=== PATIENT | male | born 1955 | race Caucasian/White ===

== ENCOUNTER → 2016-07-16 | Outpatient (CLI) | payer OTHER ==
[~2016-07-16] MED LIST: CO Q50CA; FOSI40TA PO; LEVO175T2 PO; MODU550 PO; MULT-135 PO; NOVOLOGSS; PRAS1CAP3 PO; ROSU10 PO; VITA-83 PO; VITA400C5
[2016-07-16 07:19] LABS: HEMATOCRIT 37.2 % (39.0-51.0); MEAN CELL VOLUME 90.3 FL (80.0-100.0); MEAN CORPUSCULAR HEMOGLOBIN 30.1 PG (27.0-34.0); MEAN CORPUSCULAR HGB CONC 33.4 % (32.0-36.0); PLATELET COUNT 229 TH/MM3 (150-450); RED BLOOD COUNT 4.12 MIL/MM3 (4.50-5.90); RED CELL DISTRIBUTION WIDTH 13.5 % (11.6-17.2); REVIEW FLAG FINAL; WHITE BLOOD COUNT 5.4 TH/MM3 (4.0-11.0)
[2016-07-16 07:36] LABS: MICRO ALBUMIN RANDOM URINE RAW 5.9 MG/L (0.0-30.0)
[2016-07-16 07:42] LABS: HDL CHOLESTEROL 48.7 MG/DL (40.0-60.0)
[2016-07-16 07:48] LABS: ALKALINE PHOSPHATASE 26 U/L (45-117); ALT (GPT) 27 U/L (12-78); ANION GAP 6 MEQ/L (5-15); AST (GOT) 16 U/L (15-37); BICARBONATE 30.1 MEQ/L (21.0-32.0); BLOOD UREA NITROGEN 19 MG/DL (7-18); CHLORIDE 104 MEQ/L (98-107); FREE T4 0.99 NG/DL (0.76-1.46); GLOMERULAR FILTRATION RATE 68 ML/MIN (>89); GLUCOSE,FASTING 142 MG/DL (74-99); POTASSIUM 4.4 MEQ/L (3.5-5.1); SODIUM (NA) 140 MEQ/L (136-145); TOTAL BILIRUBIN ADULT 0.4 MG/DL (0.2-1.0)
[2016-07-16 13:56] LABS: HEMOGLOBIN A1a 1.2 %; HEMOGLOBIN A1b 0.9 %; HEMOGLOBIN Ao 80.9 %; HEMOGLOBIN F 1.3 %; HEMOGLOBIN LA1C 2.3 %; HEMOGLOBIN P3 4.4 %
== END ==
LOC: CLAB 06:44
PROVIDERS: ATTEND Internal Medicine Endocrinology, Diabetes & Metabolism
DX: E10.65 Type 1 diabetes mellitus with hyperglycemia (principal); E89.0 Postprocedural hypothyroidism; E11.9 Type 2 diabetes mellitus without complications; E03.9 Hypothyroidism, unspecified; E78.5 Hyperlipidemia, unspecified; I10 Essential (primary) hypertension
CPT/HCPCS: 36415; 80053; 80061; 82043; 83036; 84439; 84443; 85027

== ENCOUNTER → 2016-11-19 | Outpatient (CLI) | payer OTHER ==
[2016-11-19 08:43] LABS: HEMATOCRIT 37.3 % (39.0-51.0); MEAN CELL VOLUME 89.8 FL (80.0-100.0); MEAN CORPUSCULAR HGB CONC 35.7 % (32.0-36.0); PLATELET COUNT 253 TH/MM3 (150-450); RED BLOOD COUNT 4.16 MIL/MM3 (4.50-5.90); RED CELL DISTRIBUTION WIDTH 12.7 % (11.6-17.2); REVIEW FLAG FINAL
[2016-11-19 09:10] LABS: ANION GAP 6 MEQ/L (5-15); AST (GOT) 13 U/L (15-37); BICARBONATE 28.7 MEQ/L (21.0-32.0); BLOOD UREA NITROGEN 19 MG/DL (7-18); CHLORIDE 104 MEQ/L (98-107); GLOMERULAR FILTRATION RATE 101 ML/MIN (>89); GLUCOSE,FASTING 100 MG/DL (74-99); POTASSIUM 4.1 MEQ/L (3.5-5.1); SODIUM (NA) 139 MEQ/L (136-145)
[2016-11-19 09:22] LABS: ALKALINE PHOSPHATASE 26 U/L (45-117); ALT (GPT) 26 U/L (12-78); FREE T4 0.99 NG/DL (0.76-1.46); HDL CHOLESTEROL 48.7 MG/DL (40.0-60.0); LDL CHOLESTEROL 71 MG/DL (0-99); TOTAL BILIRUBIN ADULT 0.5 MG/DL (0.2-1.0)
[2016-11-19 16:12] LABS: HEMOGLOBIN A1a 1.2 %; HEMOGLOBIN Ao 80.7 %; HEMOGLOBIN F 1.4 %; HEMOGLOBIN LA1C 2.4 %; HEMOGLOBIN P3 4.6 %
== END ==
LOC: OLAB 07:37
PROVIDERS: ATTEND Family Medicine
DX: E10.65 Type 1 diabetes mellitus with hyperglycemia (principal); I10 Essential (primary) hypertension; E78.5 Hyperlipidemia, unspecified; E03.9 Hypothyroidism, unspecified
CPT/HCPCS: 80053; 80061; 83036; 83735; 84402; 84403; 84410; 84439; 84443; 85027

== ENCOUNTER → 2017-02-18 | Outpatient (CLI) | payer OTHER ==
[~2017-02-18] MED LIST changes: +HUMALOG SQ; +INSU100V3 SQ; -MULT-135 PO; +MULTTAB67 PO; -PRAS1CAP3 PO; -VITA-83 PO; +VITA250T3 PO; +[UNRECOGNIZED DRUG - CODE] PO
[2017-02-18 13:03] LABS: AUTOMATED NEUTROPHIL # 3.9 TH/MM3 (1.8-7.7); BASOPHIL # 0.1 TH/MM3 (0-0.2); BASOPHIL % 0.9 % (0.0-2.0); EOSINOPHIL # 0.2 TH/MM3 (0-0.4); EOSINOPHIL % 2.9 % (0.0-4.0); HEMATOCRIT 36.3 % (39.0-51.0); HEMO FLAGS DIFF FINAL; LYMPH % 27.8 % (9.0-44.0); LYMPHOCYTE # 1.9 TH/MM3 (1.0-4.8); MEAN CELL VOLUME 91.7 FL (80.0-100.0); MEAN CORPUSCULAR HEMOGLOBIN 31.5 PG (27.0-34.0); MEAN CORPUSCULAR HGB CONC 34.4 % (32.0-36.0); MONO % 12.2 % (0.0-8.0); NEUT % 56.2 % (16.0-70.0); PLATELET COUNT 260 TH/MM3 (150-450); RED BLOOD COUNT 3.96 MIL/MM3 (4.50-5.90); RED CELL DISTRIBUTION WIDTH 12.9 % (11.6-17.2); WHITE BLOOD COUNT 6.9 TH/MM3 (4.0-11.0)
--- NOTE | 2017-02-21 18:10 | EKG ---
Date Performed: 02/18/2017 Time Performed: 12:20:19 PTAGE: 61 years EKG: Sinus rhythm MODERATE VOLTAGE CRITERIA FOR LVH, CONSIDER NORMAL VARIANT BORDERLINE ECG Compared to prior tracing no significant change PREVIOUS TRACING : 09/18/2015 07.17 DOCTOR: Nii Barlow Interpretating Date/Time 02/21/2017 18:08:08
== END ==
LOC: CPRE 11:52
PROVIDERS: ATTEND Urology
DX: Z01.810 Encounter for preprocedural cardiovascular examination (principal); Z01.812 Encounter for preprocedural laboratory examination; N52.8 Other male erectile dysfunction; N48.6 Induration penis plastica; T83.410A Breakdown (mechanical) of implanted penile prosthesis, initial encounter; R94.31 Abnormal electrocardiogram [ECG] [EKG]
CPT/HCPCS: 36415; 85025; 93005

== ENCOUNTER 2017-02-22 06:07 | Observation (INO) | payer OTHER ==
[~2017-02-22] VITALS: Ht 177.8 cm; Wt 89.4 kg
[~2017-02-22 06:07] MED LIST changes: -INSU100V3 SQ
[2017-02-22] MEDS ORDERED: GENTAMICIN INJ 240 MG in SODIUM CHLORIDE 0.9% INJ 100 ML IV SCH (06:30)
[2017-02-22] MEDS ORDERED: SODIUM CHLORID 0.9% 500 ML IV PRN (06:30)
[2017-02-22] MEDS ORDERED: VANCOMYCIN HCL 1000 MG ON-CALL/NS 250 ML IV SCH ×2 (06:30)
[2017-02-22] MEDS ORDERED: CHLORHEXIDINE GLUCONATE 2 % 1 PACK (2 CLOTHS) TOPICAL PRN (06:30)
[2017-02-22] MEDS ORDERED: INSULIN HUMAN REGULAR 1,000 UNITS/10 ML VIAL SQ PRN (06:30)
[2017-02-22] MEDS ORDERED: LACTATED RINGER'S 1000 ML IV PRN (06:30)
[2017-02-22] MEDS ORDERED: POVIDONE IODINE 5% (ANTISEPSIS KIT) 4 APPLICATIONS EACH NARE PRN (06:30)
[2017-02-22] MEDS ORDERED: METOPROLOL TARTRATE 25 MG TAB PO PRN (06:30)
--- NOTE | 2017-02-22 06:55 | RADRPT ---
EXAM DATE/TIME: 02/22/2017 06:41 [place] COMPARISON: No previous studies available for comparison. INDICATIONS : Pre-op. Remove and replace penile prosthesis. MEDICAL HISTORY : None. SURGICAL HISTORY : None. ENCOUNTER: Initial ACUITY: 1 day PAIN SCORE: 0/10 LOCATION: abdomen. FINDINGS: Supine view of the abdomen was performed. The abdominal bowel gas pattern is normal. No abnormal ma sses, calcifications, or organomegaly is seen. Sclerosis of both SI joints. Degenerative changes of t he lumbosacral junction. Penile prosthesis not visualized. Minimal density in the right pelvis. Degen erative changes of the chest. CONCLUSION: 1. No acute abnormalities. 2. Penile prosthesis not visualized. Toan Colbert MD on February 22, 2017 at 6:52 Board Certified Radiologist. This report was verified electronically.
[2017-02-22] MEDS ORDERED: ACETAMINOPHEN 1000 MG/100 ML 100 ML IV ONE (06:58)
[2017-02-22] MEDS ORDERED: FAMOTIDINE 20 MG/2 ML VIAL ONE (06:58)
[2017-02-22] MEDS ORDERED: ARTIFICIAL TEARS OPTH OINT 3.5 APPLIC/3.5 GM TUBO ONE (07:27)
[2017-02-22] MEDS ORDERED: ONDANSETRON HCL 4 MG/2 ML VIAL ONE (07:57)
[2017-02-22] MEDS ORDERED: GENTAMICIN OTHER ONE (08:00)
[2017-02-22] MEDS ORDERED: SODIUM CHLORIDE 0.9% OTHER ONE (08:00)
[2017-02-22] MEDS ORDERED: RIFAMPIN OTHER ONE (08:00)
[2017-02-22] MEDS ORDERED: MIDAZOLAM HCL 2 MG/2 ML VIAL IV ONE (09:27)
[2017-02-22] MEDS ORDERED: ONDANSETRON HCL 4 MG/2 ML VIAL IV PUSH ONE (09:27)
[2017-02-22] MEDS ORDERED: LACTATED RINGER'S 1000 ML INJ 1,000 ML IV ONE (09:27)
[2017-02-22] MEDS ORDERED: DEXAMETHASONE SOD PHOS 4 MG/ML VIAL IV ONE (09:27)
[2017-02-22] MEDS ORDERED: LIDOCAINE HCL 1% PF 5 ML AMPULE OTHER ONE (09:27)
[2017-02-22] MEDS ORDERED: PROPOFOL 200 MG/20 ML AMP IV ONE (09:27)
[2017-02-22] MEDS ORDERED: BELLADONNA ALKALOIDS/OPIUM 60 MG SUPP RECTAL PRN (10:45)
[2017-02-22] MEDS ORDERED: traMADol/ACETAMINOPHEN 37.5/325 1 TAB PO PRN (10:45)
[2017-02-22] MEDS ORDERED: INSULIN ASPART 1,000 UNITS/10 ML VIAL SQ SCH (10:45)
[2017-02-22] MEDS ORDERED: ACETAMINOPHEN 650 MG/20.3 ML UDC PO PRN (10:45)
[2017-02-22] MEDS ORDERED: DO NOT ADM ANY ANTICOAGULANT DRUGS PRN (11:06)
--- NOTE | 2017-02-22 11:07 | PD.OP ---
Operative Report Date of Surgery: Feb 22, 2017 Preoperative Diagnosis: Nonfunctioning inflatable penile prosthesis Postoperative Diagnosis: Same Procedure: Removal and reimplantation of inflatable penile prosthesis Anesthesia: Gen. LMA Surgeon: Jaswinder Meyer Quality Assurance(s): Dr. Soren Howard Resident Surgeon: None Operation and Findings: 61-year-old male presented to the office with a nonfunctional inflatable penile prosthesis. Patient initially had his AMS penile prosthesis placed back in 2005. Over the last 8 months the prosthesis is been nonfunctioning. Decision made to bring the patient to the operating room to undergo removal with reimplantation of an inflatable penile prosthesis. Risk and benefits were discussed preoperatively including bleeding infection and need for further surgery and he was willing to proceed. Patient was brought to the operating room and identified myself as Eduardo Wesley. He is placed in the operating room table in the supine position, underwent a 10 minute scrub and then was prepped with Hibiclens follow-up with ChloraPrep. He received preprocedure antibiotics and general anesthesia was administered. 16 [place]ish coud catheter was inserted with 10 cc in the balloon without difficulty. The bladder was evacuated. 15 blade was used to make the opening scrotal incision. This was a vertical incision which was a repeat of his prior incision. The overlying fascia was then dissected away down to the corporal bodies. The tubing was exposed and then grabbed with a small [place] clamp. Further dissection continued until the cylinder was able to be removed as well as the rear-tip extenders. This was done on both sides. The pump was then removed after further dissection inferiorly into the scrotum. The reservoir tubing was identified on the right side and a clamp was placed around it and then 0 nylon suture was then used to tie it off. The tubing retracted up towards inguinal canal this point. Decision was then made to place a reservoir on the patient's left side. A 75 cc reservoir was used and using my index finger the internal ring was identified. A small retractor was then inserted into the internal ring and pulled cephalad. This provided tension on the internal ring and then using the Metzenbaum scissors, the internal ring was entered on its most medial side. The Bernstein catheter was drained prior to this maneuver. The reservoir was then placed through the opening into the space of Retzius. At this point in time, measurements were taken of the corporal length which was determined to be 16 on each side. The appropriate prosthesis was then fitted on both sides and Kirit was used to pull the needle through at the tip of the corporal body on each side. Once the cylinders were set in place, the prosthesis was then tested and good insufflation was noted of both cylinders. The penis was also straight at this time.(The patient has a known history of Peyronie's disease) the reservoir was then filled with 55 cc. The reservoir tubing was then connected to the bulb. The corporal bodies were then closed with a 2-0 Vicryl suture on each side of the corporal bodies. The bulb was then placed into the inferior scrotum and 2-0 Vicryl sutures were then used to bring together the tissue overlying the tubing. The skin was then closed with a 4-0 subcuticular Maxon suture. Prior to closure the wound was copiously irrigated as this was also done throughout the entire case. He was awoken and transferred occurring stable condition. He tolerated the procedure well. Jaswinder Meyer DO Feb 22, 2017 11:07
[2017-02-22] MEDS: SODIUM CHLOR 0.45% 1000 ML INJ 1,000 ML IV SCH ×2 (12:00→20:46)
[2017-02-22] MEDS ORDERED: MISCELLANEOUS NURSING INFORMATION SCH (13:30)
[2017-02-22 16:00] VITALS: BP 142/66; PULSE 71; RESP 20; TEMP 97.5; O2SAT 98
[2017-02-22] MEDS: HYDROmorphone HCL PF 2 MG/ML VIAL IV PUSH PRN ×2 (16:58→20:52)
[2017-02-22] MEDS: ONDANSETRON HCL 4 MG/2 ML VIAL IV PUSH PRN (16:58)
[2017-02-22 20:00] VITALS: BP 137/67; PULSE 73; RESP 20; TEMP 97; O2SAT 96
[2017-02-22] MEDS: VANCOMYCIN INJ 1,000 MG in SODIUM CHLOR 0.9% 250 ML INJ 250 ML IV SCH (20:49)
[2017-02-23] VITALS: BP 120/69; PULSE 70; RESP 20; TEMP 97.3; O2SAT 95
[2017-02-23] MEDS ORDERED: LEVOTHYROXINE SODIUM 25 MCG TAB PO SCH (06:00)
[2017-02-23] MEDS ORDERED: LEVOTHYROXINE SODIUM 150 MCG TAB PO SCH (06:00)
[2017-02-23] MEDS: SODIUM CHLOR 0.45% 1000 ML INJ 1,000 ML IV SCH (06:40)
[2017-02-23 08:00] VITALS: BP 139/65; PULSE 68; RESP 17; TEMP 96.2; O2SAT 97
[2017-02-23] MEDS: VANCOMYCIN INJ 1,000 MG in SODIUM CHLOR 0.9% 250 ML INJ 250 ML IV SCH (08:26)
--- NOTE | 2017-02-23 08:47 | HHI.PR ---
Subjective Patient symptoms today Pt seen and examined. Feels well. Pain controlled. Objective Vital Signs Vital Signs Date Time Temp Pulse Resp B/P (MAP) Pulse Ox O2 Delivery O2 Flow Rate FiO2 02/23/17 08:00 96.2 68 17 139/65 (89) 97 02/23/17 00:00 97.3 70 20 120/69 (86) 95 02/22/17 21:22 16 02/22/17 20:00 97.0 73 20 137/67 (90) 96 02/22/17 16:00 97.5 71 20 142/66 (91) 98 02/22/17 14:30 97.7 73 20 139/65 (89) 97 Room Air 02/22/17 14:00 73 20 139/65 (89) 97 Room Air 02/22/17 13:00 80 20 138/64 (88) 96 Room Air 02/22/17 12:00 75 20 136/65 (88) 96 Room Air 02/22/17 11:45 80 20 131/63 (85) 96 Room Air 02/22/17 11:30 75 20 146/65 (92) 96 02/22/17 11:10 97.7 68 20 147/67 (93) 99 Nasal Cannula 2 Intake & Output 02/23/17 02/23/17 07:00 19:00 Intake Total 2299 ml Output Total 1650 ml Balance 649 ml Intake Oral 560 ml IV Total 1739 ml Output Urine Total 1650 ml # Bowel Movements 0 Objective Remarks Abd:soft,nt,nd Wound: clean and dry Bernstein out Medications and IVs Current Medications Medications (Trade) Dose Ordered Sig/Suresh Route Start Time Stop Time Status Last Admin Vancomycin HCl 1000 mg/Sodium Chloride 250 ml @ 250 mls/hr MOLDER PIPE COVERING IV 02/22/17 06:30 02/25/17 06:29 02/22/17 06:50 Lactated Ringer's 1,000 ml @ 30 mls/hr Q24H PRN IV 02/22/17 06:30 02/25/17 06:29 02/22/17 06:45 Sodium Chloride 500 ml @ 30 mls/hr [id number] PRN IV 02/22/17 06:30 02/25/17 06:29 (Lopressor) 25 mg MOLDER PIPE COVERING PRN PO 02/22/17 06:30 02/25/17 06:29 (Betadine 5% Antisepsis Kit) 1 applic MOLDER PIPE COVERING PRN EACH NARE 02/22/17 06:30 02/25/17 06:29 02/22/17 06:45 (Chlorhexidine 2% Cloth) 3 pack MOLDER PIPE COVERING PRN TOPICAL 02/22/17 06:30 02/25/17 06:29 02/22/17 06:15 (NovoLIN R INJ) See Protocol Table ... MOLDER PIPE COVERING PRN SQ 02/22/17 06:30 02/25/17 06:29 Vancomycin HCl 1000 mg/Sodium Chloride 250 ml @ 250 mls/hr Q12H IV 02/22/17 20:00 02/23/17 20:59 02/23/17 08:26 (Dilaudid Pf Inj) 1 mg Q4H PRN IV PUSH 02/22/17 12:30 02/22/17 20:52 (B & O Supp) 60 mg Q6HR PRN RECTAL 02/22/17 10:45 02/22/17 11:30 (Ultracet 37.5-325 Mg) 1 tab Q4H PRN PO 02/22/17 10:45 (Tylenol 650 Mg/ 20 ml Liq) 650 mg Q6H PRN PO 02/22/17 10:45 (Synthroid) 150 mcg DAILY@0600 PO 02/23/17 06:00 02/23/17 06:25 Sodium Chloride 1,000 ml @ 100 mls/hr Q10H IV 02/22/17 12:00 02/23/17 06:40 (Moduretic 5-50 Mg) 1 tab DAILY PO 02/23/17 09:00 02/23/17 08:24 (Zofran Inj) 4 mg Q6HR PRN IV PUSH 02/22/17 11:15 02/22/17 16:58 Miscellaneous Information ALL NURSING DEPARTME... UNSCH PRN .XX 02/22/17 11:06 02/23/17 11:05 (Synthroid) 25 mcg DAILY@0600 PO 02/23/17 06:00 02/23/17 06:25 Miscellaneous Information "TYPE INFO IN HERE" PER ... UNSCH .XX 02/22/17 13:30 (Pneumovax-23 Inj) 25 mcg ONCE ONCE IM 02/23/17 10:00 02/23/17 10:01 02/23/17 08:29 (Flu (Quadrivalent) Vaccine Inj) 0.5 ml ONCE ONCE IM 02/23/17 10:00 02/23/17 10:01 02/23/17 08:28 Assessment and Plan Assessment and Plan Stable s/p IPP removal and reimplantation Void trial Discharge home F/U in office in 2 weeks Jaswinder Meyer DO Feb 23, 2017 08:47
--- NOTE | 2017-02-23 08:47 | HHI.PR ---
Subjective Patient symptoms today Pt seen and examined. Feels well. Pain controlled. Objective Vital Signs Vital Signs Date Time Temp Pulse Resp B/P (MAP) Pulse Ox O2 Delivery O2 Flow Rate FiO2 02/23/17 08:00 96.2 68 17 139/65 (89) 97 02/23/17 00:00 97.3 70 20 120/69 (86) 95 02/22/17 21:22 16 02/22/17 20:00 97.0 73 20 137/67 (90) 96 02/22/17 16:00 97.5 71 20 142/66 (91) 98 02/22/17 14:30 97.7 73 20 139/65 (89) 97 Room Air 02/22/17 14:00 73 20 139/65 (89) 97 Room Air 02/22/17 13:00 80 20 138/64 (88) 96 Room Air 02/22/17 12:00 75 20 136/65 (88) 96 Room Air 02/22/17 11:45 80 20 131/63 (85) 96 Room Air 02/22/17 11:30 75 20 146/65 (92) 96 02/22/17 11:10 97.7 68 20 147/67 (93) 99 Nasal Cannula 2 Intake & Output 02/23/17 02/23/17 07:00 19:00 Intake Total 2299 ml Output Total 1650 ml Balance 649 ml Intake Oral 560 ml IV Total 1739 ml Output Urine Total 1650 ml # Bowel Movements 0 Objective Remarks Abd:soft,nt,nd Wound: clean and dry Bernstein out Medications and IVs Current Medications Medications (Trade) Dose Ordered Sig/Suresh Route Start Time Stop Time Status Last Admin Vancomycin HCl 1000 mg/Sodium Chloride 250 ml @ 250 mls/hr FAMILY SERVICES SPECIALIST IV 02/22/17 06:30 02/25/17 06:29 02/22/17 06:50 Lactated Ringer's 1,000 ml @ 30 mls/hr Q24H PRN IV 02/22/17 06:30 02/25/17 06:29 02/22/17 06:45 Sodium Chloride 500 ml @ 30 mls/hr [id number] PRN IV 02/22/17 06:30 02/25/17 06:29 (Lopressor) 25 mg FAMILY SERVICES SPECIALIST PRN PO 02/22/17 06:30 02/25/17 06:29 (Betadine 5% Antisepsis Kit) 1 applic FAMILY SERVICES SPECIALIST PRN EACH NARE 02/22/17 06:30 02/25/17 06:29 02/22/17 06:45 (Chlorhexidine 2% Cloth) 3 pack FAMILY SERVICES SPECIALIST PRN TOPICAL 02/22/17 06:30 02/25/17 06:29 02/22/17 06:15 (NovoLIN R INJ) See Protocol Table ... FAMILY SERVICES SPECIALIST PRN SQ 02/22/17 06:30 02/25/17 06:29 Vancomycin HCl 1000 mg/Sodium Chloride 250 ml @ 250 mls/hr Q12H IV 02/22/17 20:00 02/23/17 20:59 02/23/17 08:26 (Dilaudid Pf Inj) 1 mg Q4H PRN IV PUSH 02/22/17 12:30 02/22/17 20:52 (B & O Supp) 60 mg Q6HR PRN RECTAL 02/22/17 10:45 02/22/17 11:30 (Ultracet 37.5-325 Mg) 1 tab Q4H PRN PO 02/22/17 10:45 (Tylenol 650 Mg/ 20 ml Liq) 650 mg Q6H PRN PO 02/22/17 10:45 (Synthroid) 150 mcg DAILY@0600 PO 02/23/17 06:00 02/23/17 06:25 Sodium Chloride 1,000 ml @ 100 mls/hr Q10H IV 02/22/17 12:00 02/23/17 06:40 (Moduretic 5-50 Mg) 1 tab DAILY PO 02/23/17 09:00 02/23/17 08:24 (Zofran Inj) 4 mg Q6HR PRN IV PUSH 02/22/17 11:15 02/22/17 16:58 Miscellaneous Information ALL NURSING DEPARTME... UNSCH PRN .XX 02/22/17 11:06 02/23/17 11:05 (Synthroid) 25 mcg DAILY@0600 PO 02/23/17 06:00 02/23/17 06:25 Miscellaneous Information "TYPE INFO IN HERE" PER ... UNSCH .XX 02/22/17 13:30 (Pneumovax-23 Inj) 25 mcg ONCE ONCE IM 02/23/17 10:00 02/23/17 10:01 02/23/17 08:29 (Flu (Quadrivalent) Vaccine Inj) 0.5 ml ONCE ONCE IM 02/23/17 10:00 02/23/17 10:01 02/23/17 08:28 Assessment and Plan Assessment and Plan Stable s/p IPP removal and reimplantation Void trial Discharge home F/U in office in 2 weeks Jaswinder Meyer DO Feb 23, 2017 08:47
--- NOTE | 2017-02-23 08:47 | HHI.PR ---
Subjective Patient symptoms today Pt seen and examined. Feels well. Pain controlled. Objective Vital Signs Vital Signs Date Time Temp Pulse Resp B/P (MAP) Pulse Ox O2 Delivery O2 Flow Rate FiO2 02/23/17 08:00 96.2 68 17 139/65 (89) 97 02/23/17 00:00 97.3 70 20 120/69 (86) 95 02/22/17 21:22 16 02/22/17 20:00 97.0 73 20 137/67 (90) 96 02/22/17 16:00 97.5 71 20 142/66 (91) 98 02/22/17 14:30 97.7 73 20 139/65 (89) 97 Room Air 02/22/17 14:00 73 20 139/65 (89) 97 Room Air 02/22/17 13:00 80 20 138/64 (88) 96 Room Air 02/22/17 12:00 75 20 136/65 (88) 96 Room Air 02/22/17 11:45 80 20 131/63 (85) 96 Room Air 02/22/17 11:30 75 20 146/65 (92) 96 02/22/17 11:10 97.7 68 20 147/67 (93) 99 Nasal Cannula 2 Intake & Output 02/23/17 02/23/17 07:00 19:00 Intake Total 2299 ml Output Total 1650 ml Balance 649 ml Intake Oral 560 ml IV Total 1739 ml Output Urine Total 1650 ml # Bowel Movements 0 Objective Remarks Abd:soft,nt,nd Wound: clean and dry Bernstein out Medications and IVs Current Medications Medications (Trade) Dose Ordered Sig/Suresh Route Start Time Stop Time Status Last Admin Vancomycin HCl 1000 mg/Sodium Chloride 250 ml @ 250 mls/hr RIB MATCHER AND FITTER IV 02/22/17 06:30 02/25/17 06:29 02/22/17 06:50 Lactated Ringer's 1,000 ml @ 30 mls/hr Q24H PRN IV 02/22/17 06:30 02/25/17 06:29 02/22/17 06:45 Sodium Chloride 500 ml @ 30 mls/hr [id number] PRN IV 02/22/17 06:30 02/25/17 06:29 (Lopressor) 25 mg RIB M[employer]ER AND FITTER PRN PO 02/22/17 06:30 02/25/17 06:29 (Betadine 5% Antisepsis Kit) 1 applic RIB MATCHER AND FITTER PRN EACH NARE 02/22/17 06:30 02/25/17 06:29 02/22/17 06:45 (Chlorhexidine 2% Cloth) 3 pack RIB MATCHER AND FITTER PRN TOPICAL 02/22/17 06:30 02/25/17 06:29 02/22/17 06:15 (NovoLIN R INJ) See Protocol Table ... RIB MATCHER AND FITTER PRN SQ 02/22/17 06:30 02/25/17 06:29 Vancomycin HCl 1000 mg/Sodium Chloride 250 ml @ 250 mls/hr Q12H IV 02/22/17 20:00 02/23/17 20:59 02/23/17 08:26 (Dilaudid Pf Inj) 1 mg Q4H PRN IV PUSH 02/22/17 12:30 02/22/17 20:52 (B & O Supp) 60 mg Q6HR PRN RECTAL 02/22/17 10:45 02/22/17 11:30 (Ultracet 37.5-325 Mg) 1 tab Q4H PRN PO 02/22/17 10:45 (Tylenol 650 Mg/ 20 ml Liq) 650 mg Q6H PRN PO 02/22/17 10:45 (Synthroid) 150 mcg DAILY@0600 PO 02/23/17 06:00 02/23/17 06:25 Sodium Chloride 1,000 ml @ 100 mls/hr Q10H IV 02/22/17 12:00 02/23/17 06:40 (Moduretic 5-50 Mg) 1 tab DAILY PO 02/23/17 09:00 02/23/17 08:24 (Zofran Inj) 4 mg Q6HR PRN IV PUSH 02/22/17 11:15 02/22/17 16:58 Miscellaneous Information ALL NURSING DEPARTME... UNSCH PRN .XX 02/22/17 11:06 02/23/17 11:05 (Synthroid) 25 mcg DAILY@0600 PO 02/23/17 06:00 02/23/17 06:25 Miscellaneous Information "TYPE INFO IN HERE" PER ... UNSCH .XX 02/22/17 13:30 (Pneumovax-23 Inj) 25 mcg ONCE ONCE IM 02/23/17 10:00 02/23/17 10:01 02/23/17 08:29 (Flu (Quadrivalent) Vaccine Inj) 0.5 ml ONCE ONCE IM 02/23/17 10:00 02/23/17 10:01 02/23/17 08:28 Assessment and Plan Assessment and Plan Stable s/p IPP removal and reimplantation Void trial Discharge home F/U in office in 2 weeks Jaswinder Meyer DO Feb 23, 2017 08:47
[2017-02-23] MEDS ORDERED: aMILoride/HCTZ 5 MG/50 MG TAB PO SCH (09:00)
[2017-02-23] MEDS ORDERED: INFLUENZA VIRUS VACCINE (QUADRIVALENT) 0.5 ML SYR IM ONE (10:00)
[2017-02-23] MEDS ORDERED: PNEUMOCOCCAL POLYVALENT INJ 25 MCG/0.5 ML SYR IM ONE (10:00)
[2017-02-23] MEDS: ONDANSETRON HCL 4 MG/2 ML VIAL IV PUSH PRN (10:11)
[2017-02-23] MEDS: HYDROmorphone HCL PF 2 MG/ML VIAL IV PUSH PRN (10:11)
== END 2017-02-23 11:50 | disposition home or self-care (01) ==
LOC: HSDC 06:07 → HSDI 10:55 → N07A 14:54
PROVIDERS: ADMIT Urology; ATTEND Urology
DX: T83.410A Breakdown (mechanical) of implanted penile prosthesis, initial encounter (principal); N52.8 Other male erectile dysfunction; N48.6 Induration penis plastica; E11.9 Type 2 diabetes mellitus without complications; E05.00 Thyrotoxicosis with diffuse goiter without thyrotoxic crisis or storm; I10 Essential (primary) hypertension; M19.90 Unspecified osteoarthritis, unspecified site; G62.9 Polyneuropathy, unspecified; Z79.4 Long term (current) use of insulin; Z23 Encounter for immunization
CPT/HCPCS: 00938; 54410; 74000; 82948; 90471; 90472; 90686; 90732; 96365; 96372; 96375; 96376; C1813; G0378; J0131; J1100; J1170; J1580; J2250; J2405; J3010; J3370; J7050; J7120; G0008; G0009; Q2038

== ENCOUNTER → 2017-03-23 | Outpatient (CLI) | payer OTHER ==
[~2017-03-23] MED LIST changes: -HUMALOG SQ; +NYST15T TOPICAL
[2017-03-23 09:03] LABS: HEMATOCRIT 37.4 % (39.0-51.0); MEAN CELL VOLUME 90.6 FL (80.0-100.0); MEAN CORPUSCULAR HEMOGLOBIN 31.3 PG (27.0-34.0); MEAN CORPUSCULAR HGB CONC 34.5 % (32.0-36.0); PLATELET COUNT 264 TH/MM3 (150-450); RED BLOOD COUNT 4.13 MIL/MM3 (4.50-5.90); RED CELL DISTRIBUTION WIDTH 12.9 % (11.6-17.2); REVIEW FLAG FINAL; WHITE BLOOD COUNT 6.2 TH/MM3 (4.0-11.0)
[2017-03-23 09:20] LABS: ANION GAP 6 MEQ/L (5-15); AST (GOT) 20 U/L (15-37); BICARBONATE 27.1 MEQ/L (21.0-32.0); BLOOD UREA NITROGEN 20 MG/DL (7-18); CHLORIDE 101 MEQ/L (98-107); GLOMERULAR FILTRATION RATE 82 ML/MIN (>89); GLUCOSE,FASTING 131 MG/DL (74-99); POTASSIUM 3.8 MEQ/L (3.5-5.1); SODIUM (NA) 134 MEQ/L (136-145)
[2017-03-23 09:21] LABS: ALT (GPT) 26 U/L (12-78)
[2017-03-23 09:30] LABS: ALKALINE PHOSPHATASE 29 U/L (45-117); FREE T4 1.12 NG/DL (0.76-1.46); HDL CHOLESTEROL 53.7 MG/DL (40.0-60.0); LDL CHOLESTEROL 53 MG/DL (0-99); TOTAL BILIRUBIN ADULT 0.4 MG/DL (0.2-1.0)
[2017-03-23 12:50] LABS: HEMOGLOBIN A1a 1.3 %; HEMOGLOBIN A1b 0.9 %; HEMOGLOBIN Ao 81.8 %; HEMOGLOBIN F 1.3 %; HEMOGLOBIN LA1C 2.4 %; HEMOGLOBIN P3 4.3 %
== END ==
LOC: OLAB 07:40
DX: E89.0 Postprocedural hypothyroidism (principal); E78.5 Hyperlipidemia, unspecified; I10 Essential (primary) hypertension; E10.65 Type 1 diabetes mellitus with hyperglycemia; Z68.28 Body mass index [BMI] 28.0-28.9, adult
CPT/HCPCS: 80053; 80061; 83036; 84439; 84443; 85027

== ENCOUNTER → 2017-08-10 | Outpatient (CLI) | payer OTHER ==
[2017-08-10 09:14] LABS: HEMATOCRIT 36.1 % (39.0-51.0); HEMOGLOBIN 12.5 GM/DL (13.0-17.0); MEAN CELL VOLUME 88.5 FL (80.0-100.0); MEAN CORPUSCULAR HEMOGLOBIN 30.7 PG (27.0-34.0); MEAN CORPUSCULAR HGB CONC 34.7 % (32.0-36.0); MEAN PLATELET VOLUME 6.8 FL (7.0-11.0); PLATELET COUNT 277 TH/MM3 (150-450); RED BLOOD COUNT 4.08 MIL/MM3 (4.50-5.90); RED CELL DISTRIBUTION WIDTH 12.4 % (11.6-17.2); WHITE BLOOD COUNT 5.5 TH/MM3 (4.0-11.0)
[2017-08-10 14:35] LABS: ALBUMIN 3.6 GM/DL (3.4-5.0); AST (GOT) 17 U/L (15-37); BICARBONATE 28.7 MEQ/L (21.0-32.0); BLOOD UREA NITROGEN 16 MG/DL (7-18); CALCIUM 9.1 MG/DL (8.5-10.1); CHLORIDE 106 MEQ/L (98-107); CREATININE 0.96 MG/DL (0.60-1.30); GLOMERULAR FILTRATION RATE 79 ML/MIN (>89); GLUCOSE,FASTING 107 MG/DL (74-99); SODIUM (NA) 141 MEQ/L (136-145)
[2017-08-10 14:37] LABS: CHOLESTEROL 127 MG/DL (120-200); TRIGLYCERIDES 90 MG/DL (42-150)
[2017-08-10 14:47] LABS: ALKALINE PHOSPHATASE 26 U/L (45-117); ALT (GPT) 28 U/L (12-78); CHOLESTEROL/ HDL RATIO 2.79 RATIO; HDL CHOLESTEROL 45.5 MG/DL (40.0-60.0); LDL CHOLESTEROL 64 MG/DL (0-99); TOTAL BILIRUBIN ADULT 0.4 MG/DL (0.2-1.0); TOTAL PROTEIN 7.6 GM/DL (6.4-8.2)
[2017-08-10 17:27] LABS: HEMOGLOBIN A1C 7.8 % (4.3-6.0)
== END ==
LOC: OLAB 08:49
PROVIDERS: ATTEND Family Medicine
DX: E10.65 Type 1 diabetes mellitus with hyperglycemia (principal); I10 Essential (primary) hypertension; E78.5 Hyperlipidemia, unspecified; E03.9 Hypothyroidism, unspecified; Z68.28 Body mass index [BMI] 28.0-28.9, adult; Z12.5 Encounter for screening for malignant neoplasm of prostate
CPT/HCPCS: 36415; 80053; 80061; 82043; 83036; 83735; 84153; 84443; 85027